=== PATIENT | female | born 1985 | race African-American/Black ===

== ENCOUNTER 2020-07-31 12:12 | Emergency (ER) | payer OTHER ==
[2020-07-31 12:22] VITALS: TEMP 97.8; BMI 34.0
--- NOTE | 2020-07-31 12:22 | PDOC ---
Rapid Medical Evaluation Chief Complaint: Pain Time Seen by Provider: 07/31/20 12:19 Medical Evaluation: Allergies Allergy/AdvReac Type Severity Reaction Status Date / Time No Known Allergies Allergy Verified 04/04/18 16:25 07/31/20 12:20 CC: late onmenses, did home preg last week, + preg, but now with urinary freq and lower abd cramping, no vag discharge bleeding or back pain Exam: vss, mid suprapubic tenderness Plan: start with urine Discharge Disposition - Diagnosis Lower abdominal pain - Referrals - Patient Instructions - Post Discharge Activity
--- OUTSIDE RECORDS SUMMARY | 2020-07-31 12:42 | XMS ---
:1985 Author Organization [facility] Care Team Providers Name Role Phone ERNIE BOWIE Unavailable Unavailable Re-disclosure Warning The records that you are about to access may contain information from federally- assisted alcohol or drug abuse programs. If such information is present, then the following federally mandated warning applies: This information has been disclosed to you from records protected by federal confidentiality rules (42 CFR part 2). The federal rules prohibit you from making any further disclosure of this information unless further disclosure is expressly permitted by the written consent of the person to whom it pertains or as otherwise permitted by 42 CFR part 2. A general authorization for the release of medical or other information is NOT sufficient for this purpose. The Federal rules restrict any use of the information to criminally investigate or prosecute any alcohol or drug abuse patient.The records that you are about to access may contain highly sensitive health information, the redisclosure of which is protected by Article 27-F of the [facility] Public Health law. If you continue you may haveaccess to information: Regarding HIV / AIDS; Provided by facilities licensed or operated by the [facility] Office of Mental Health; or Provided by the [facility] Office for People With Developmental Disabilities. If such information is present, then the following [facility] mandated warning applies: This information has been disclosed to you from confidential records which are protected by state law. State law prohibits you from making any further disclosure of this information without the specific written consent of the person to whom it pertains, or as otherwise permitted by law. Any unauthorized further disclosure in violation of state law may result in a fine or assisted sentence or both. A general authorization for the release of medical or other information is NOT sufficient authorization for further disclosure. Encounters Encounter Providers Location Date Indications Data Source(s ) [facility] [place] [facility] EDT [facility] [employer] (TEL) [facility]2020 [facility] AM EDT [facility] [employer]) (TEL) [facility] 05/14/2020 [facility] AM EDT [facility] [employer] [place] AM EDT [facility] [employer]) Outpatient Attender: H 11/04/2019 [facility] 09:34:00 [facility] Clay BACH r: ERNIE BOWIERefsachi r: ERNIE BOWIE [facility] [place] AM EDT [facility] [employer]) Immunizations Vaccine Date Status Description Data Source(s) Azithromycin 500mg #2 2020 completed eCW2 ( [facility] ([facility] 01:54:00 PM [facility]T [facility]) Azithromycin 500mg #2 2020 completed eCW2 ( [facility] ([facility]) 01:54:00 PM EDT [facility] [facility]) Azithromycin 500mg #2 2020 completed eCW2 ( [facility] ([facility]) 01:54:00 PM EDT [facility] [employer] [facility]) Ceftriaxone (Rocephin) 2020 completed eCW2 ([facility] 250[facility] 01:[facility] [place] [facility] [facility] [place] [employer] [facility] Ceftriaxone (Rocephin) 2020 completed eCW2 ([facility] 250[facility] IM 01:53:00 PM [facility] [place] [employer] [facility]) Ceftriaxone (Rocephin) 2020 completed eCW2 ([facility] 250mg IM 01:53:00 PM EDT [facility] [employer] [facility]) Insurance Providers Payer name Policy type Policy ID Covered Covered democrat's Policy P tiago / Coverage democrat ID relationship to Ribe[facility] Inf ormation type ribeiro TED [id number] ESSENTIAL PLAN 1 2 O [facility] O [id number] Problems, Conditions, and Diagnoses Code Display Name Description Problem Type Effective Dates Data Source(s) E88.81 Metabolic syndrome METABOLIC Diagnosis 11/04/2019 [facility] SYNDROME 09:34:00 AM EST Medical C enter E34.9 Endocrine ENDOCRINE Diagnosis 11/04/2019 [facility] disorder, DISORDER, 09:34:00 AM EST Medical C enter unspecified UNSPECIFIED D52.9 Folate deficiency FOLATE DEFICIENCY Diagnosis 11/04/2019 [facility] anemia, ANEMIA, 09:34:00 AM EST Medical C enter unspecified UNSPECIFIED D51.3 Other dietary OTHER DIETARY Diagnosis 11/04/2019 [facility] vitamin B12 VITAMIN B12 09:34:[address] [facility] Medical Center deficiency anemia DEFICIENCY ANEMIA E56.8 Deficiency of DEFICIENCY OF Diagnosis 11/04/2019 [facility] other vitamins OTHER VITAMINS 09:34:00 AM [facility] E83.19 Other disorders of OTHER DISORDERS Diagnosis 11/04/2019 [facility]da Saunders iron metabolism OF IRON 09:34:00 AM EST [facility] METABOLISM E55.9 Vitamin D VITAMIN D Diagnosis 11/04/2019 [facility] deficiency, DEFICIENCY, 09:34:[address] [facility] Medical Center unspecified UNSPECIFIED E53.9 Vitamin B VITAMIN B Diagnosis 11/04/2019 [facility] deficiency, DEFICIENCY, 09:34:[address] [facility] Medical Center unspecified UNSPECIFIED E56.9 Vitamin VITAMIN Diagnosis 11/04/2019 [facility] deficiency, DEFICIENCY, 09:34:00 AM [facility] unspecified UNSPECIFIED Z98.84 Bariatric surgery BARIATRIC SURGERY Diagnosis 11/04/2019 [facility] status STATUS 09:34:[address] [facility] Medical enter Surgeries/Procedures Procedure Description Date Indications Data Source(s) GONORRHEA, DINAH 05/04/2020 eCW2 ([facility] 12:[facility] AM [facility]) CHLAMYDIA, DINAH 05/04/2020 eCW2 ([facility] 12:00:00 AM EDT [facility] [facility]) PAP SMEAR: 05/04/2020 eCW2 ([facility]anned LIQUID-BASED (THIN 12:00:00 AM EDT [facility]) [employer] [facility]) HPV TYPES 16/18, 45 05/04/2020 eCW2 (Pl [facility] (with pap only) 12:00:00 AM EDT [facility] [employer] [facility]) Results ID Date Data Source Liver 11/04/2019 10:00:00 AM [facility] Profile.[id number] Name Value Range Interpretation Description Data Sup porting Code Source(s) Document(s ) Alanine 7-30 <content [facility] aminotransferase styleCode="Bold"> Vineet hs [Enzymatic Alanine Medical activity/volume] Aminotransferase Center in Serum or Plasma (ALT) </content>9 IU/L<content styleCode="Italic s"> (7-30 IU/L)</content> Aspartate 14-36 <content [facility] aminotransferase styleCode="Bold"> Vineet hs [Enzymatic Aspartate Medical activity/volume] Aminotransferase Center in Serum or Plasma (AST) </content>21 IU/L<content styleCode="Italic s"> (14-36 IU/L)</content> Bilirubin.total 0.2-1.3 <content [facility] [Mass/volume] in styleCode="Bold"> Vineet hs Serum or Plasma Bilirubin Total Medical </content>0.7 Center MG/DL<content styleCode="Italic s"> (0.2-1.3 MG/DL)</content> Albumin 3.5-5.0 <content [facility] [Mass/volume] in styleCode="Bold"> Vineet hs Serum or Plasma Albumin Medical </content>4.1 Center G/DL<content styleCode="Italic s"> (3.5-5.0 G/DL)</content> Alkaline 38-126 <content [facility] phosphatase styleCode="Bold"> Chip [Enzymatic Alkaline Medical activity/volume] Phosphatase (ALP) Cente r in Serum or Plasma </content>58 IU/L<content styleCode="Italic s"> (38-126 IU/L)</content> ID Date Data Source LIPID.[id number] 11/04/2019 10:00:00 AM EST [facility] Name Value Range Interpretation Description Data Sup porting Code Source(s) Document(s ) UNK > 60 <content [facility] styleCode="Brittney Chip d">HDL- Medical Cholesterol Center </content>69 MG/DL<content styleCode="Nichelle lics"> (> 60 MG/DL)</conten t> Cholesterol -<200 Above high normal <content [facility] [Mass/volume] in styleCode="Brittney Chip Serum or Plasma d">Cholesterol Medical </content>227 Center MG/DL H<content styleCode="Nichelle lics"> (-<200 MG/DL)</conten t> Triglyceride < 150 <content [facility] [Mass/volume] in styleCode="Brittney Chip Serum or Plasma d">Triglycerid Medical Center </content>76 MG/DL<content styleCode="Nichelle lics"> (< 150 MG/DL)</conten t> UNK < 100 Above high normal <content [facility] styleCode="Brittney Chip d">LDL-Cholest [facility] </content>143 MG/DL H<content styleCode="Nichelle lics"> (< 100 MG/DL)</conten t> ID Date Data Source Hormones.[id number] 11/04/2019 10:00:00 AM EST [facility] Name Value Range Interpretation Description Data Sup porting Code Source(s) Document(s ) Triiodothyronine 76-181 <content [facility] (T3) [Moles/volume] styleCode="Charan Delbert s in Serum or Plasma ld">T3 Total Medical </content>86 Center ng/dL<content styleCode="It alics"> (76-181 ng/dL)</mariano nt> UNK 5.53-11 <content Saint .0 styleCode="Charan Chip ld">Thyroxine Medical (T4) Center </content>7.9 6 UG/DL<content styleCode="It alics"> (5.53-11.0 UG/DL)</mariano nt> Thyrotropin 0.465-4 <content Saint [Units/volume] in .68 styleCode="Charan [facility] Serum or Plasma by ld">Thyroid Medical Detection limit <= Stimulating Center 0.05 mIU/L Hormone </content>1.6 3 MIU/L<content styleCode="It alics"> (0.465-4.68 MIU/L)</mariano nt> ID Date Data Source HematologyRou.[id number] 11/04/2019 10:00:00 AM EST [facility] 0500 Name Value Range Interpretation Description Data Sup porting Code Source(s) Document(s ) Erythrocyte mean 80.0-100 <content [facility] corpuscular .0 styleCode="Bold Chip volume [Entitic ">Mean Medical volume] by Corpuscular Center Automated count Volume </content>81.4 FL<content styleCode="Ital ics"> (80.0-100.0 FL)</content> Leukocytes 4.4-11.0 <content Saint [#/volume] in styleCode="Bold Chip Blood by ">White Blood Medical Automated count Cell Count Center </content>4.62 KCUMM<content styleCode="Ital ics"> (4.4-11.0 KCUMM)</content > Hemoglobin 12.3-16. <content [facility] [Mass/volume] in 0 styleCode="Bold Chip Blood ">Hemoglobin Medical </content>12.3 Center G/DL<content styleCode="Ital ics"> (12.3-16.0 G/DL)</content> Erythrocytes 4.0-5.1 <content [facility] [#/volume] in styleCode="Bold Chip Blood by ">Red Blood Medical Automated count Cell Count Center </content>4.73 MCUMM<content styleCode="Ital ics"> (4.0-5.1 MCUMM)</content > Hematocrit 36.0-46. <content [facility] [Volume 0 styleCode="Bold Chip Fraction] of ">Hematocrit Medical Blood by </content>38.5 Center Automated count %<content styleCode="Ital ics"> (36.0-46.0 %)</content> Erythrocyte 11.5-14. Above high <content [facility] distribution 5 normal styleCode="Bold Chip width [Ratio] by ">Red Cell Medical Automated count Distribution Center Width </content>15.3 % H<content styleCode="Ital ics"> (11.5-14.5 %)</content> Platelets 130-400 <content Saint [#/volume] in styleCode="Bold Chip Blood by ">Platelet Medical Automated count Count Center </content>253 KCUMM<content styleCode="Ital ics"> (130-400 KCUMM)</content > Erythrocyte mean 26.0-34. <content [facility] corpuscular 0 styleCode="Bold Chip hemoglobin ">Mean Medical [Entitic mass] Corposcular Center by Automated Hemoglobin count </content>26.0 PG<content styleCode="Ital ics"> (26.0-34.0 PG)</content> Erythrocyte mean 32.0-37. Below low normal <content [facility] corpuscular 0 styleCode="Bold Chip hemoglobin ">Mean Corpus. Medical concentration Hgb Center [Mass/volume] by Concentration Automated count (MCHC) </content>31.9 G/DL L<content styleCode="Ital ics"> (32.0-37.0 G/DL)</content> Lymphocytes 24.0-44. <content Saint [#/volume] in 0 styleCode="Bold Chip Blood by ">Lymphocyte Medical Automated count </content>41.3 Center %<content styleCode="Ital ics"> (24.0-44.0 %)</content> Platelet mean 8.0-11.0 <content [facility] volume [Entitic styleCode="Bold Chip volume] in Blood ">Mean Platelet Medical by Automated Volume Center count </content>10.6 FL<content styleCode="Ital ics"> (8.0-11.0 FL)</content> Neutrophils 36-66 <content Saint [#/volume] in styleCode="Bold Chip Blood by ">Neutrophil Medical Automated count </content>50.6 Center %<content styleCode="Ital ics"> (36-66 %)</content> UNK 1.6-7.3 <content Saint styleCode="Bold Chip ">Neutrophil Medical Count Center </content>2.33 KCUMM<content styleCode="Ital ics"> (1.6-7.3 KCUMM)</content > Monocytes 3.0-10.0 <content Saint [#/volume] in styleCode="Bold Chip Blood by ">Monocyte Medical Automated count </content>5.8 Center %<content styleCode="Ital ics"> (3.0-10.0 %)</content> UNK 0.2-0.9 <content Saint styleCode="Bold Chip ">Monocyte Medical Count Center </content>0.27 KCUMM<content styleCode="Ital ics"> (0.2-0.9 KCUMM)</content > UNK 1.0-4.8 <content Saint styleCode="Bold Chip ">Lymphocyte Medical Count Center </content>1.91 KCUMM<content styleCode="Ital ics"> (1.0-4.8 KCUMM)</content > Eosinophils 0-5.0 <content Saint [#/volume] in styleCode="Bold Chip Blood by ">Eosinophil Medical Automated count </content>1.7 Center %<content styleCode="Ital ics"> (0-5.0 %)</content> UNK 0.0-0.3 <content Saint styleCode="Bold Chip ">Basophil Medical Count Center </content>0.02 KCUMM<content styleCode="Ital ics"> (0.0-0.3 KCUMM)</content > Basophils 0.0-1.0 <content Saint [#/volume] in styleCode="Bold Chip Blood by ">Basophil Medical Automated count </content>0.4 Center %<content styleCode="Ital ics"> (0.0-1.0 %)</content> UNK 0 <content Saint styleCode="Bold Chip ">Nucleated Red Medical Blood Cell Center </content>0.0 /100<content styleCode="Ital ics"> (0 /100)</content> UNK 0.0-0.6 <content Saint styleCode="Bold Chip ">Eosinophil Medical Count Center </content>0.08 KCUMM<content styleCode="Ital ics"> (0.0-0.6 KCUMM)</content > UNK 0-0.1 <content Saint styleCode="Bold Chip ">Immature Medical Granulocyte Center Count </content>0.01 KCUMM<content styleCode="Ital ics"> (0-0.1 KCUMM)</content > UNK < 1 <content Saint styleCode="Bold Chip ">Immature Medical Granulocyte Center Ratio </content>0.2 %<content styleCode="Ital ics"> (< 1 %)</content> UNK 0.0 <content Saint styleCode="Bold Chip ">Nucleated Red Medical Blood Cell Center Count </content>0.00 KCUMM<content styleCode="Ital ics"> (0.0 KCUMM)</content > ID Date Data Source GFR(Creatinine).[id number] 11/04/2019 10:00:[address] [facility] 0-0500 Name Value Range Interpretation Code Description Data Fany rce(s) Supporting Document(s ) UNK > 60 <content [facility] styleCode="Bold"> Medical Cent er EGFR </content>106 GFR<content styleCode="Italic s"> (> 60 GFR)</content> ID Date Data Source ChemistrySpecia.[id number] 11/04/2019 10:00:00 AM EST [facility] 0-0500 Name Value Range Interpretation Description Data Sup porting Code Source(s) Document(s ) Folate > 3.0 <content [facility] [Mass/volume] styleCode="Brittney Chip in Serum or d">Folic Acid Medical Plasma </content>> Center 20.0 NG/ML<content styleCode="Nichelle lics"> (> 3.0 NG/ML)</conten t> Cobalamin 239-931 <content Saint (Vitamin B12) styleCode="Brittney Saunders [Mass/volume] d">Vitamin B12 Medical in Serum or </content>335 Center Plasma PG/ML<content styleCode="Nichelle lics"> (239-931 PG/ML)</conten t> ID Date Data Source CHMROUTINECCDA.[id number] 11/04/2019 10:00:00 AM MIKALA Lind [facility] -0500 Name Value Range Interpretation Description Data Sup porting Code Source(s) Document(s ) Folate > 3.0 <content [facility] [Mass/volume] in styleCode="Charan Saunders Serum or Plasma ld">Folic Medical Acid Center </content>> 20.0 NG/ML<content styleCode="It alics"> (> 3.0 NG/ML)</mariano nt> UNK >= 1.0 <content Saint styleCode="Charan Saunders ld">AG Ratio Medical </content>1.4 Center <content styleCode="It alics"> (>= 1.0 )</content> Ferritin 11-264 <content Saint [Mass/volume] in styleCode="Charan Saunders Serum or Plasma ld">Ferritin Medical </content>20. Center 3 NG/ML<content styleCode="It alics"> (11-264 NG/ML)</mariano nt> Magnesium 1.6-2.3 <content [facility] [Mass/volume] in styleCode="Charan Saunders Serum or Plasma ld">Magnesium Medical </content>2.0 Center MG/DL<content styleCode="It alics"> (1.6-2.3 MG/DL)</mariano nt> UNK 4.2-5.8 <content Saint styleCode="Charan Chip ld">Hemoglobi Medical n A1C Center </content>5.5 %<content styleCode="It alics"> (4.2-5.8 %)</content> Iron [Mass/volume] 37-170 <content [facility] in Serum or Plasma styleCode="Charan Saunders ld">Iron Medical </content>74 Center UG/DL<content styleCode="It alics"> (37-170 UG/DL)</mariano nt> UNK 2.3-3.5 <content Saint styleCode="Charan Mandujanos ld">Globulin Medical </content>2.9 Center G/DL<content styleCode="It alics"> (2.3-3.5 G/DL)</conten t> Triiodothyronine 76-181 <content Saint (T3) [Moles/volume] styleCode="Charan Mandujano s in Serum or Plasma ld">T3 Total Medical </content>86 Center ng/dL<content styleCode="It alics"> (76-181 ng/dL)</mariano nt> Protein 6.3-8.2 <content Saint [Mass/volume] in styleCode="Charan Mandujanos Serum or Plasma ld">Total Medical Protein Center </content>7.0 G/DL<content styleCode="It alics"> (6.3-8.2 G/DL)</conten t> UNK 265-497 <content Saint styleCode="Charan Saunders ld">TIBC Medical </content>283 Center UG/DL<content styleCode="It alics"> (265-497 UG/DL)</mariano nt> ID Date Data Source [facility].[id number] 11/04/2019 10:00:00 AM EST [facility] Name Value Range Interpretation Description Data Sup porting Code Source(s) Document(s ) Carbon dioxide, 22-30 <content [facility] total styleCode="Bold"> Chip [Moles/volume] in Carbon Dioxide Medical Serum or Plasma </content>26 Center MEQ/L<content styleCode="Italic s"> (22-30 MEQ/L)</content> Sodium 137-145 <content Saint [Moles/volume] in styleCode="Bold"> Terrance phs Serum or Plasma Sodium Medical </content>140 Center MEQ/L<content styleCode="Italic s"> (137-145 MEQ/L)</content> Potassium 3.5-5.3 <content Saint [Moles/volume] in styleCode="Bold"> Terrance phs Serum or Plasma Potassium Medical </content>4.5 Center MEQ/L<content styleCode="Italic s"> (3.5-5.3 MEQ/L)</content> Chloride 98-107 Above high <content Saint [Moles/volume] in normal styleCode="Bold"> Terrance phs Serum or Plasma Chloride Medical </content>108 Center MEQ/L H<content styleCode="Italic s"> (98-107 MEQ/L)</content> Glucose 74-106 <content Saint [Mass/volume] in styleCode="Bold"> Vineet hs Serum or Plasma Glucose Medical </content>84 Center MG/DL<content styleCode="Italic s"> (74-106 MG/DL)</content> Calcium 8.4-10. <content Saint [Mass/volume] in 2 styleCode="Bold"> Vineet hs Serum or Plasma Calcium Medical </content>9.5 Center MG/DL<content styleCode="Italic s"> (8.4-10.2 MG/DL)</content> UNK > 60 <content Saint styleCode="Bold"> Chip EGFR Medical </content>106 Center GFR<content styleCode="Italic s"> (> 60 GFR)</content> Creatinine 0.5-1.3 <content Saint [Mass/volume] in styleCode="Bold"> Vineet hs Serum or Plasma Creatinine Medical </content>0.8 Center MG/DL<content styleCode="Italic s"> (0.5-1.3 MG/DL)</content> UNK 7-17 <content Saint styleCode="Bold"> Chip BUN </content>11 Medical MG/DL<content Center styleCode="Italic s"> (7-17 MG/DL)</content> Bilirubin.total 0.2-1.3 <content Saint [Mass/volume] in styleCode="Bold"> Vineet hs Serum or Plasma Bilirubin Total Medical </content>0.7 Center MG/DL<content styleCode="Italic s"> (0.2-1.3 MG/DL)</content> Alanine 7-30 <content Saint aminotransferase styleCode="Bold"> Vineet hs [Enzymatic Alanine Medical activity/volume] Aminotransferase Center in Serum or Plasma (ALT) </content>9 IU/L<content styleCode="Italic s"> (7-30 IU/L)</content> Alkaline 38-126 <content [facility] phosphatase styleCode="Bold"> Chip [Enzymatic Alkaline Medical activity/volume] Phosphatase (ALP) Cente r in Serum or Plasma </content>58 IU/L<content styleCode="Italic s"> (38-126 IU/L)</content> Aspartate 14-36 <content [facility] aminotransferase styleCode="Bold"> Vineet hs [Enzymatic Aspartate Medical activity/volume] Aminotransferase Center in Serum or Plasma (AST) </content>21 IU/L<content styleCode="Italic s"> (14-36 IU/L)</content> Albumin 3.5-5.0 <content Saint [Mass/volume] in styleCode="Bold"> Vineet hs Serum or Plasma Albumin Medical </content>4.1 Center G/DL<content styleCode="Italic s"> (3.5-5.0 G/DL)</content> Procedure Social History Code Duration Value Status Description Data Source(s ) Smoking 2020 12:00:00 Never Smoker completed Never Smoker e CW2 ([facility] AM [facility] [employer] [facility]) Smoking 2020 12:00:00 Never Smoker completed Never Smoker e CW2 ([facility] AM EDT [facility] [employer] [facility]) Smoking 2020 12:00:00 Never Smoker completed Never Smoker e CW2 ([facility] AM EDT [facility] [employer] [facility]) Vital Signs ID Date Data Source UNK Name Value Range Interpretation Code Description Data Source(s) Diastolic blood 80 mm[Hg] 80 mm[Hg] eCW2 (Theodore nned pressure [facility] [employer]) Systolic blood 114 mm[Hg] 114 mm[Hg] eCW2 (Plan solomon pressure [facility] [employer]) Body mass index 44.96 kg/m2 44.96 kg/m2 eCW2 (P lanned (BMI) [Ratio] [facility] [employer]) Body weight 238 [lb_av] 238 [lb_av] eCW2 (Plann ed [facility] [employer]) Body height 61 [in_i] 61 [in_i] eCW2 ([facility] [employer]) Diastolic blood 88 mm[Hg] 88 mm[Hg] eCW2 (Theodore nned pressure [facility] [employer]) Systolic blood 117 mm[Hg] 117 mm[Hg] eCW2 (Plan solomon pressure [facility] [employer]) Body mass index 45.15 kg/m2 45.15 kg/m2 eCW2 (P lanned (BMI) [Ratio] [facility] [employer]) Body weight 239 [lb_av] 239 [lb_av] eCW2 (Plann ed Measured [facility] [employer]) Body height 61 [in_us] 61 [in_us] eCW2 ([facility] [employer])
[2020-07-31 13:45] LABS: HCG,QUALITATIVE URINE Positive
--- NOTE | 2020-07-31 13:45 | PDOC ---
History of Present Illness - General Chief Complaint: Pain Stated Complaint: ABDOMINAL PAIN Time Seen by Provider: 07/31/20 12:19 History Source: Patient Exam Limitations: No Limitations - History of Present Illness Initial Comments: 07/31/20 13:42 Patient is a 35-year-old female who presents to the ED with complaint of having lower abdominal cramping and a positive test at home. The patient denies any dysuria or hematuria. She denies any vaginal bleeding. She states she took 2 tests in early June which were negative. Last week, the patient took a test and it was positive. She denies any fevers or chills. She denies any back pain. The patient denies any past medical history. She states that she had a gastric sleeve in 2016. Past History - Medical History Allergies/Adverse Reactions: Allergies Allergy/AdvReac Type Severity Reaction Status Date / Time No Known Allergies Allergy Verified 04/04/18 16:25 Home Medications: Ambulatory Orders Cephalexin [Keflex] 500 mg PO BID #14 capsule 07/31/20 Loratadine [Claritin -] 10 mg PO DAILY PRN 07/31/20 COPD: No Thyroid Disease: No - Reproductive History Is Patient Now?: Yes - Immunization History Immunization Up to Date: Yes - Psycho-Social/Smoking History Smoking Status: No Smoking History: Never smoked Have you smoked in the past 12 months: No Number of Cigarettes Smoked Daily: 0 Information on smoking cessation initiated: No - Substance Abuse Hx (Audit-C & DAST Scrn) How often the patient has a drink containing alcohol: Never Score: In Men: 4 or > Positive; In Women: 3 or > Positive: 0 Screen Result (Pos requires Nsg. Audit-10AR): Negative In the last yr the pt used illegal drug/Rx for NonMed reason: No Score: Yes response is considered Positive: 0 Screen Result (Positive result requires Nsg. DAST-10): Negative Review of Systems - Review of Systems Comments:: 07/31/20 13:43 - Review of Systems Able to Perform ROS?: Yes Constitutional: No: Fever, Chills, Loss of Appetite, Night Sweats, Weakness HEENTM: No: Eye Pain, Vision changes, Ear Pain, Throat Pain, Throat Swelling, Mouth Pain, Difficulty Swallowing Respiratory: No: Cough, Shortness of Breath, Wheezing, Sputum Production Cardiac (ROS): No: Chest Pain, Chest Tightness, Palpitations, Irregular Heart Beat, Edema ABD/GI: No: Nausea, Vomiting, Abdominal Pain, Diarrhea; positive: Lower abdo rina cramping, positive test : No Dysuria, No Hematuria, No Frequency, No Urgency, No Vaginal Discharge/Pain Musculoskeletal: No: Muscle Pain, Back Pain, Joint Pain, Muscle Weakness, Neck Pain Integumentary: No: Lesions, Rash Neurological: No: Headache, Numbness, Tingling, Weakness, Speech Difficulties *Physical Exam - Vital Signs Last Vital Signs Temp Pulse Resp BP Pulse Ox 97.8 F 73 18 133/89 100 07/31/20 12:19 07/31/20 12:19 07/31/20 12:19 07/31/20 12:19 07/31/20 12:19 - Physical Exam 07/31/20 13:43 - Physical Exam General Appearance: Nourished, Appropriately Dressed, No Distress HEENT: EOMI, Normal Voice, Hearing Grossly Normal Neck: Supple, No Lymphadenopathy (R), No Lymphadenopathy (L), No Rigidity, No Decreased range of motion Respiratory/Chest: Lungs Clear, Normal Breath Sounds. No Respiratory Distress, No Accessory Muscle Use Cardiovascular: Regular Rhythm, Regular Rate, S1, S2 Gastrointestinal/Abdominal: Normal Bowel Sounds, Soft. Non-tender, No Guarding, No Rebound, No Rigidity; no reproducible abdominal tenderness to palpation. No suprapubic abdominal tenderness. No CVA tenderness bilaterally LAUNDRY CLERK: Mild white discharge in the vaginal vault. Cervix nonfriable. Os closed. No CMT. Bimanual exam without tenderness to the suprapubic region without masses palpated. No adnexal tenderness or masses palpated. Musculoskeletal: Normal Inspection. No Decreased Range of Motion Extremity: Normal Capillary Refill, Normal Inspection Integumentary: Normal Color, Dry. No Rash Neurologic: assayer helper II-XII NML intact, Fully Oriented, Alert, Normal Mood/Affect, Normal Response ED Treatment Course - LABORATORY CBC & Chemistry Diagram: 07/31/20 14:50 07/31/20 14:50 Medical Decision Making - Medical Decision Making 07/31/20 13:44 Assessment: Patient is a 35-year-old female with abdominal cramping and a positive test at home. Plan: -UA and urine culture ordered -Urine test ordered, if positive will send labs and get an ultrasound. 07/31/20 14:58 Patient's urine test was positive. Labs sent for further evaluation. Transvaginal ultrasound ordered. 1 L of NS ordered. 07/31/20 17:19 The patient has been made aware that her ultrasound shows a 5 weeks 5-day intrauterine gestation but a pole is not seen. This could be secondary to early . The patient states she follows up with [facility] and will be able to see them in a few days for repeat evaluation. She has been given strict return precautions such as vaginal bleeding or severe abdominal pain. She has been made aware that she must have a repeat ultrasound and blood work within the next few days for repeat evaluation. We will also treat the patient for bacteriuria secondary to being even though she has no symptoms. She understands and agrees this treatment plan and she is stable for discharge. Discharge - Discharge Information Problems reviewed: Yes Clinical Impression/Diagnosis: Lower abdominal pain, Asymptomatic bacteriuria during in first trimester, Abdominal pain affecting Condition: Stable Disposition: HOME - Additional Discharge Information Prescriptions: Cephalexin [Keflex] 500 mg PO BID #14 capsule - Follow up/Referral Referrals: Alona Snell MD [Primary Care Provider] - 2 Days - Patient Discharge Instructions Patient Printed Discharge Instructions: DI for Abdominal Pain -- Early Additional Instructions: Avoid any strenuous activity or heavy lifting. Remain on pelvic rest including sexual intercourse or anything in the vagina until you are cleared by ATTENDING RADIOLOGIST. You must follow-up with your ATTENDING RADIOLOGIST within 2 to 3 days for repeat blood work and ultrasound. Return immediately to the nearest emergency department for heavy vaginal bleeding, severe abdominal pain or any other worsening symptoms. Get plenty of rest and drink plenty of fluids. - Post Discharge Activity
[2020-07-31 13:48] LABS: EPI CELLS >36 /uL (0-25.1); HYALINE CASTS 9 /uL (0-3.1); URINE APPEARANCE CLOUDY; URINE BACTERIA 871 /uL (0-1359); URINE BILIRUBIN NEGATIVE (NEGATIVE); URINE COLOR YELLOW; URINE GLUCOSE (UA) NEGATIVE (NEGATIVE); URINE KETONE TRACE (NEGATIVE); URINE LEUK ESTERASE TRACE (NEGATIVE); URINE NITRITE NEGATIVE (NEGATIVE); URINE PROTEIN NEGATIVE (NEGATIVE); URINE RBC 8 /uL (0-23.9); URINE WBC 31 /uL (0-25.8)
[2020-07-31] MEDS ORDERED: SODIUM CHLORIDE 1,000 ML IV STA (14:04)
[2020-07-31 15:32] LABS: BASO % 0.5 % (0-2.0); EOS % 0.6 % (0-4.5); HEMATOCRIT 33.9 % (32.4-45.2); HEMOGLOBIN 10.7 GM/dL (10.7-15.3); LYMPH % 31.6 % (8-40); MCH 25.6 pg (25.7-33.7); MCHC 31.5 g/dl (32.0-36.0); MEAN CELL VOLUME 81.4 fl (80-96); MEAN PLT VOLUME 8.1 fl (7.5-11.1); MONO % 6.1 % (3.8-10.2); NEUT % 61.2 % (42.8-82.8); PLATELET COUNT 275 K/MM3 (134-434); RBC 4.16 M/mm3 (3.60-5.2); RDW 16.5 % (11.6-15.6); WHITE BLOOD COUNT 6.6 K/mm3 (4.0-10.0)
[2020-07-31 15:36] LABS: INR 1.03 (0.83-1.09); PROTHROMBIN TIME (PATIENT) 12.4 SEC (9.7-13.0)
[2020-07-31 15:38] LABS: ACTIVATED PTT 32.7 SECONDS (25.2-36.5)
[2020-07-31 15:45] LABS: CALCIUM 8.7 mg/dL (8.5-10.1)
[2020-07-31 15:46] LABS: ALBUMIN 3.1 g/dl (3.4-5.0); BLOOD UREA NITROGEN 7.1 mg/dL (7-18)
[2020-07-31 15:49] LABS: CREATININE 0.5 mg/dL (0.55-1.3)
[2020-07-31 15:50] LABS: BILIRUBIN,TOTAL 0.5 mg/dL (0.2-1)
[2020-07-31 15:51] LABS: TOT PROT 6.2 g/dl (6.4-8.2)
[2020-07-31 17:39] VITALS: BP 111/73; PULSE 68
== END 2020-07-31 17:39 | disposition home or self-care (01) ==
LOC: JER 12:12
PROC: 3E0337Z Introduction of Electrolytic and Water Balance Substance into Peripheral Vein, Percutaneous Approach (ICD-10-PCS; principal; 2020-07-31)
DX: R10.30 Lower abdominal pain, unspecified (principal)
CPT/HCPCS: 36415; 76817-TC; 80053; 81003; 84702; 84703; 85025; 85610; 85730; 87086; 99285-25

== ENCOUNTER 2020-10-18 11:04 | Emergency (ER) | payer OTHER ==
[2020-10-18 11:25] VITALS: BP 114/64; PULSE 72; TEMP 98; BMI 34.7
[2020-10-18] MEDS ORDERED: diazePAM 2 MG TABLET PO ONE (11:56)
[2020-10-18] MEDS ORDERED: KETOROLAC TROMETHAMINE 30 MG/1 ML VIAL IM ONE (11:57)
[2020-10-18] MEDS ORDERED: diazePAM 2 MG TABLET ONE (12:01)
[2020-10-18] MEDS ORDERED: KETOROLAC TROMETHAMINE 30 MG/1 ML VIAL ONE (12:01)
== END 2020-10-18 12:36 | disposition home or self-care (01) ==
LOC: JERFT 11:04
PROC: 3E0233Z Introduction of Anti-inflammatory into Muscle, Percutaneous Approach (ICD-10-PCS; principal; 2020-10-18)
DX: M54.2 Cervicalgia (principal)
CPT/HCPCS: 87070; 87880; 96372; 99284-25

== ENCOUNTER 2023-05-19 12:13 | Emergency (ER) | payer OTHER ==
[2023-05-19 12:47] VITALS: TEMP 98; BMI 34.7
[2023-05-19] MEDS ORDERED: ACETAMINOPHEN 1000 MG/100 ML BAG IVPB ONE (13:39)
[2023-05-19] MEDS ORDERED: ACETAMINOPHEN INJECTION 100 ML IVPB ONE (13:59)
[2023-05-19 14:15] LABS: BASO % 0.7 % (0-2.0); EOS % 1.4 % (0-4.5); HEMATOCRIT 35.5 % (32.4-45.2); HEMOGLOBIN 11.4 GM/dL (10.7-15.3); LYMPH % 31.5 % (8-40); MCH 24.7 pg (25.7-33.7); MEAN PLT VOLUME 8.3 fl (7.5-11.1); NEUT % 58.4 % (42.8-82.8); PLATELET COUNT 241 10^3/uL (134-434); RBC 4.62 M/mm3 (3.60-5.2); RDW 17.8 % (11.6-15.6); WHITE BLOOD COUNT 7.5 K/mm3 (4.0-10.0)
[2023-05-19 14:16] LABS: PH,URINE 5.5 (5.0-8.0); URINE APPEARANCE CLEAR; URINE BILIRUBIN NEGATIVE (NEGATIVE); URINE COLOR DK YELLOW; URINE GLUCOSE (UA) NEGATIVE (NEGATIVE); URINE KETONE NEGATIVE (NEGATIVE); URINE LEUK ESTERASE NEGATIVE (NEGATIVE); URINE NITRITE NEGATIVE (NEGATIVE); URINE PROTEIN TRACE (NEGATIVE)
[2023-05-19 14:33] LABS: ACTIVATED PTT 30.3 SECONDS (25.2-36.5); PROTHROMBIN TIME (PATIENT) 11.6 SEC (9.7-13.0)
[2023-05-19 14:41] LABS: POTASSIUM 4.2 mmol/L (3.5-5.1)
[2023-05-19 14:43] LABS: CALCIUM 8.4 mg/dL (8.5-10.1)
[2023-05-19 14:44] LABS: ALBUMIN 3.3 g/dl (3.4-5.0); BLOOD UREA NITROGEN 10.7 mg/dL (7-18)
[2023-05-19 14:47] LABS: CREATININE 0.8 mg/dL (0.55-1.3)
[2023-05-19 14:48] LABS: BILIRUBIN,TOTAL 0.9 mg/dL (0.2-1); TOT PROT 6.6 g/dl (6.4-8.2)
[2023-05-19 18:52] VITALS: BP 132/88; PULSE 88; RESP 14
== END 2023-05-19 19:17 | disposition home or self-care (01) ==
LOC: JER 12:13
PROC: 3E033NZ Introduction of Analgesics, Hypnotics, Sedatives into Peripheral Vein, Percutaneous Approach (ICD-10-PCS; principal; 2023-05-19)
DX: R10.30 Lower abdominal pain, unspecified (principal); R10.13 Epigastric pain; S39.012A Strain of muscle, fascia and tendon of lower back, initial encounter; X58.XXXA Exposure to other specified factors, initial encounter
CPT/HCPCS: 36415; 74177-TC; 76705-TC; 80053; 81003; 83690; 84703; 85025; 85610; 85730; 87086; 99285-25; Q9967

== ENCOUNTER 2023-09-06 11:12 | Emergency (ER) | payer OTHER ==
[2023-09-06 12:20] VITALS: RESP 16; BMI 37.0
[2023-09-06] MEDS ORDERED: SODIUM CHLORIDE 0.9% 1000 ML INFUS.BAG IV ONE (14:01)
[2023-09-06] MEDS ORDERED: METOCLOPRAMIDE HCL INJECTION 10 MG/2 ML VIAL IVPUSH ONE (14:01)
[2023-09-06] MEDS ORDERED: ACETAMINOPHEN 1000 MG/100 ML BAG IVPB ONE (14:01)
[2023-09-06] MEDS ORDERED: ACETAMINOPHEN INJECTION 100 ML IVPB ONE (14:25)
[2023-09-06] MEDS ORDERED: METOCLOPRAMIDE HCL INJECTION 10 MG/2 ML VIAL ONE (14:25)
[2023-09-06 15:05] LABS: BASO % 0.9 % (0-2.0); EOS % 1.5 % (0-4.5); HEMATOCRIT 37.8 % (32.4-45.2); HEMOGLOBIN 12.1 GM/dL (10.7-15.3); LYMPH % 34.4 % (8-40); MCH 24.7 pg (25.7-33.7); MEAN CELL VOLUME 77.1 fl (80-96); MONO % 7.2 % (3.8-10.2); PLATELET COUNT 251 10^3/uL (134-434); RDW 16.8 % (11.6-15.6); WHITE BLOOD COUNT 7.1 K/mm3 (4.0-10.0)
[2023-09-06 15:17] LABS: PH,URINE 5.5 (5.0-8.0); URINE APPEARANCE CLOUDY; URINE BILIRUBIN NEGATIVE (NEGATIVE); URINE COLOR YELLOW; URINE GLUCOSE (UA) NEGATIVE (NEGATIVE); URINE KETONE TRACE (NEGATIVE); URINE LEUK ESTERASE NEGATIVE (NEGATIVE); URINE NITRITE NEGATIVE (NEGATIVE); URINE PROTEIN NEGATIVE (NEGATIVE); URINE UROBILINOGEN 0.2 mg/dL (0.2-1.0)
[2023-09-06 15:18] LABS: POTASSIUM 3.8 mmol/L (3.5-5.1)
[2023-09-06 15:19] LABS: ALBUMIN 3.5 g/dl (3.4-5.0); CALCIUM 8.3 mg/dL (8.5-10.1)
[2023-09-06 15:20] LABS: BLOOD UREA NITROGEN 14.6 mg/dL (7-18)
[2023-09-06 15:20] LABS: HCG,QUALITATIVE URINE Negative
[2023-09-06 15:25] LABS: BILIRUBIN,TOTAL 0.7 mg/dL (0.2-1); TOT PROT 6.8 g/dl (6.4-8.2)
[2023-09-06 15:26] LABS: CREATININE 0.8 mg/dL (0.55-1.3)
[2023-09-06 16:00] VITALS: BP 128/77; PULSE 68; TEMP 98.7
== END 2023-09-06 16:08 | disposition home or self-care (01) ==
LOC: JER 11:12
PROC: 3E033NZ Introduction of Analgesics, Hypnotics, Sedatives into Peripheral Vein, Percutaneous Approach (ICD-10-PCS; principal; 2023-09-06)
PROC: 3E033GC Introduction of Other Therapeutic Substance into Peripheral Vein, Percutaneous Approach (ICD-10-PCS; 2023-09-06)
DX: G44.209 Tension-type headache, unspecified, not intractable (principal); R63.0 Anorexia; E86.0 Dehydration
CPT/HCPCS: 36415; 80053; 81003; 84703; 85025; 87086; 96374; 96375; 99284-25